=== PATIENT | female | born 1950 | race Caucasian/White ===

== ENCOUNTER 2020-06-02 18:40 | Emergency (ER) | payer MEDICARE, BC ==
[2020-06-02] MEDS ORDERED: Acetaminophen/HYDROcodone 325-5 MG Tab ONE (19:20)
[2020-06-02] MEDS ORDERED: Sodium Chloride 0.9% 50 ML SDV FLUSH ONE (20:20)
[2020-06-02] MEDS ORDERED: Iopamidol 612 MG/ML 100 ML Bottle IV SCH (20:30)
--- NOTE | 2020-06-03 08:17 | CT ---
Date of Service: 06/02/20 Clinical Data: New Mass on CXR. ENHANCED CHEST CT: Multislice acquisition through the chest with IV contrast was performed. No priors. There is a large, mass within the left upper lobe. It measures 11.3 cm in its maximum dimension. It is circumscribed and extends to the pleura posteriorly and laterally. It has mixed attenuation with areas of near soft tissue attenuation mixed with areas of near fluid attenuation. There is poorly defined ground-glass opacity within the upper lobe adjacent to this mass. There is compressive atelectasis adjacent to the mass also. There is a pleural based nodule within the left upper lobe anterior to the mass. There are atelectatic changes in the dependent portion of both lungs. The right lung is otherwise clear. There is a small left pleural effusion. There is minimal right pleural effusion. The heart size is normal. There are moderate coronary artery calcifications. No pericardial effusion. No enlarged mediastinal or hilar nodes. There are multiple left axillary nodes. A couple of these are mildly enlarged. There are also enlarged supraclavicular nodes on the left. There is degenerative disk disease throughout the thoracic spine. No lytic or blastic bone lesions. IMPRESSION: Large left upper lobe mass as discussed above. Small bilateral pleural effusions. This most likely represents a malignant process. Lymphoma and other malignant processes are included in the differential. ENHANCED ABDOMEN AND PELVIC CT: Multislice acquisition through the abdomen and pelvis with IV, but without oral contrast was performed. There are small bilateral pleural effusions, left greater than right. There is a small hiatal hernia. There is a sharply transcribed fluid density lesion within the liver, left lobe, medial segment. It measures 3.8 cm in its maximum dimension. It does not enhance. No other hepatic lesions. The gallbladder appears normal. No biliary duct dilatation. The spleen is mildly prominent in size. It is homogeneous in attenuation. The pancreas appears normal. The right and left adrenals appear normal. The right and left kidneys appear normal and enhance symmetrically. No hydronephrosis or hydroureter. The bladder is fluid filled. It appears normal. There is a moderate amount of stool noted within the colon. There is diffuse gastric wall thickening. This is probably related to nondistention. No evidence of appendicitis. No free air. There is a small amount of free fluid in the pelvis. There are multiple portocaval and mesenteric nodes. Some of these are mildly enlarged. There is degenerative disk disease throughout the lumbar spine. No lytic of blastic bone lesions. [id number] [facility]
--- NOTE | 2020-06-03 15:37 | CR ---
DATE OF SERVICE: 06/02/2020 CLINICAL DATA: Chest pain with deep breathing. PORTABLE CHEST: Comparison was made to a prior exam dated 04/03/2018. There is a large mass in the left mid and upper lung. It extends from the left hilum laterally to the pleura. It measures 10.7 cm in its maximum dimension. The lungs are otherwise clear. No pneumothorax. No definite pleural effusion. [id number] [facility]
--- NOTE | 2020-06-17 07:11 | ER ---
DATE OF SERVICE: HISTORY OF PRESENT ILLNESS: 69-year-old lady who comes in with complaints of chest wall pain with deep breathing on the left side. She states it just started this afternoon a couple of hours before coming to the ER. She denies any falls or injuries. She states that it hurts a lot when she takes a deep breath. If she does not take a deep breath, she is not in any pain. She is not coughing. No problems with shortness of breath. She has no recent history of illness or running a fever. The patient does have history of being a smoker. No history of coronary artery disease. 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 She tells me that her hemoglobin is chronically low and she does see Oncology for this. CURRENT MEDICATIONS: Include Wellbutrin and folic acid. ALLERGIES: NONE. OBJECTIVE: GENERAL APPEARANCE: The patient is awake and alert. No obvious respiratory distress. VITAL SIGNS: Reviewed as listed, they are normal. HEENT: Oral mucous membranes moist. Tonsils not enlarged or injected. Pharynx not inflamed. NECK: Supple. LUNGS: Clear. Deep breathing does induce coughing and therefore restrict air intake about 30% to 40% I would say. I can hear air exchange throughout the lung dumont without any rales, wheezes, or rhonchi. CARDIAC: Heart sounds distinct. S1, S2 present. Regular rate. No murmurs. SKIN: Warm and Dry. LAB AND X-RAYS: Labs include a CBC showing a hemoglobin of 7.3, normal white count, platelets are 921. Chemistry shows a BUN of 25.4. Troponin is negative. Chest x-ray shows a mass in the left upper lobe, this prompted us to do a CT of the chest, abdomen, and pelvis, which once again shows the mass described as a large upper left lobe mass with multiple possible etiology most likely representing a malignant process. DIAGNOSIS: Lung mass, new, causing discomfort with deep breathing. TREATMENT PLAN: I had a discussion with the patient stating that further evaluation will be needed and this should be done with her primary care provider and she agrees, this is Tata Alvarez from [place]. I will call this provider tomorrow and discuss the patient's case with her provider and make sure that she has access to the imaging studies for further evaluation efforts. In the meantime, the patient is here with her , he will drive her home. I did give her a few pain medications to take as needed for the pain with deep breathing. She has no other questions or concerns. CRS/MODL /[id number] MTDD
== END 2020-06-02 22:10 | disposition home or self-care (01) ==
LOC: LB.ED 18:40
DX: R91.8 Other nonspecific abnormal finding of lung field (principal); F17.200 Nicotine dependence, unspecified, uncomplicated; I25.10 Atherosclerotic heart disease of native coronary artery without angina pectoris; Z79.899 Other long term (current) drug therapy
CPT/HCPCS: 36415; 71045; 71260; 74177; 80048; 84484; 85025; 93005; 99283; 99285-25; A9270-GY; Q9967

== ENCOUNTER 2025-02-04 13:02 | Emergency (ER) | payer MEDICARE, BC ==
[2025-02-04] MEDS ORDERED: Sodium Chloride 0.9% 10 ML Syringe FLUSH PRN ×2 (13:08→15:33)
[2025-02-04] MEDS: Ondansetron 4 MG/2 ML SDV IVPUSH ONE (13:53)
[2025-02-04 13:55] LABS: MEAN PLATELET VOLUME 10.6 fL (6.0-10.0); PLATELET COUNT,PLT 249.0 K/uL (150-500); RED BLOOD CELL COUNT 3.37 M/uL (3.80-5.80); RED CELL DISTRIBUTION WIDTH 16.5 % (11.0-16.0); WHITE BLOOD CELL COUNT,WBC 8.6 K/uL (4.0-11.0)
[2025-02-04 14:24] LABS: BLOOD UREA NITROGEN,BUN 42.0 mg/dL (8-26); CARBON DIOXIDE,CO2 25.3 mmol/L (21.0-32.0); CHLORIDE,CL 103.0 mmol/L (98-107); CREATININE 1.19 mg/dL (0.55-1.02); EST CRCL DRUG DOSING (CG) 35.19 mL/min; ESTIMATED GFR 49.0 mL/min (>60); GLUCOSE RANDOM 163.0 mg/dL (74-100); POTASSIUM,K 5.9 mmol/L (3.5-5.1); SODIUM,NA 142.0 mmol/L (136-145); TROPONIN I HIGH SENSITIVITY 35.5 pg/ml (<=60.4)
[2025-02-04] MEDS: Prochlorperazine 10 MG/2 ML SDV IVPUSH ONE ×2 (15:22→21:24)
[2025-02-04] MEDS ORDERED: 50% Dextrose in Water 50 ML Syringe IVPUSH PRN (15:33)
[2025-02-04] MEDS: 50% Dextrose in Water 50 ML Syringe IVPUSH ONE (15:39)
[2025-02-04] MEDS: Insulin Regular, Human 100 Units/ML 10 ML Vial IVPUSH ONE (15:46)
[2025-02-04] MEDS: Amiodarone 450 MG/9 ML SDV IV ONE ×2 (21:18)
[2025-02-05 09:48] VITALS: BP 112/56; PULSE 103
[2025-02-05] MEDS: Ondansetron 4 MG Tab.DIS PO ONE (10:26)
== END 2025-02-05 10:40 ==
LOC: LB.ED 13:02
DX: I48.91 Unspecified atrial fibrillation (principal); E87.5 Hyperkalemia; E83.39 Other disorders of phosphorus metabolism; N17.9 Acute kidney failure, unspecified; N18.31 Chronic kidney disease, stage 3a; Z79.899 Other long term (current) drug therapy; Z79.01 Long term (current) use of anticoagulants; Z79.890 Hormone replacement therapy
CPT/HCPCS: 36415; 71045; 80048; 82947; 83735; 84100; 84484; 85027; 93005; 93010; 96365; 96366; 96374; 96375; 96376; 99285; 99285-25; A0425; A0428; A0429; A9270-GY; J0282; J0283; J0780; J2270; J2405; J7030; J7060; Q0162